=== PATIENT | male | born 1985 | race Caucasian/White ===

== ENCOUNTER 2020-10-02 01:11 | Emergency (ER) | payer MEDICAID ==
[~2020-10-02] VITALS: Ht 1722.1 cm; Wt 106.6 kg
[2020-10-02] MEDS ORDERED: CLOP75TA15 PO (01:34)
[2020-10-02] MEDS ORDERED: METO25TA6 PO (01:34)
[2020-10-02] MEDS ORDERED: ASPI81TA31 PO (01:34)
[2020-10-02] MEDS ORDERED: LISI-782 PO (01:34)
[2020-10-02] MEDS ORDERED: ATOR20TA PO (01:34)
[2020-10-02] MEDS ORDERED: AMLODIPINE 5 MG TABLET PO ONE (01:45)
--- NOTE | 2020-10-02 01:58 | NUR ---
md ordered to hold on the hydralizine at this time, 161/102
[2020-10-02] MEDS ORDERED: hydrALAZINE HCL 20 MG/1 ML VIAL ONE (02:02)
[2020-10-02 02:06] LABS: CREATININE 0.7 mg/dL (0.6-1.3); POTASSIUM 4.5 mmol/L (3.5-5.1)
[2020-10-02 02:11] LABS: BASOPHILS % (AUTO) 0.4 % (0.0-2.0); EOSINOPHILS # (AUTO) 0.1 K/uL (0.0-0.7); EOSINOPHILS % (AUTO) 1.1 % (0.0-7.0); HEMATOCRIT 44.1 % (36.7-47.1); HEMOGLOBIN 15.2 g/dL (12.5-16.3); LYMPHOCYTES # (AUTO) 2.9 K/uL (20.0-40.0); LYMPHOCYTES % (AUTO) 34.5 % (20.5-51.5); MEAN CORPUSCULAR HEMOGLOBIN 30.2 uug (23.8-33.4); MEAN CORPUSCULAR HGB CONC 35 g/dL (32.5-36.3); MEAN CORPUSCULAR VOLUME 87.6 fL (73.0-96.2); MONOCYTES # (AUTO) 0.6 K/uL (2.0-10.0); MONOCYTES % (AUTO) 7.2 % (0.0-11.0); NEUTROPHILS # (AUTO) 4.7 K/uL (1.8-8.9); NEUTROPHILS % (AUTO) 56.8 % (38.5-71.5); PLATELET COUNT (AUTO) 205 K/uL (152-348); RED BLOOD CELL COUNT(AUTO) 5.03 MIL/uL (4.06-5.63); WHITE BLOOD COUNT (AUTO) 8.3 K/uL (3.6-10.2)
[2020-10-02] MEDS: LISINOPRIL 10 MG TABLET PO ONE (02:15)
[2020-10-02] MEDS ORDERED: LISINOPRIL 10 MG TABLET ONE (02:16)
[2020-10-02] MEDS: hydrALAZINE HCL 20 MG/1 ML VIAL IV ONE (02:27)
[2020-10-02 02:53] LABS: CREATININE 0.7 mg/dL (0.6-1.3); POTASSIUM 3.8 mmol/L (3.5-5.1)
[2020-10-02] MEDS: METOPROLOL TARTRATE 50 MG TABLET PO ONE (04:05)
[2020-10-02] MEDS ORDERED: METOPROLOL TARTRATE 50 MG TABLET ONE (04:10)
--- NOTE | 2020-10-02 04:24 | NUR ---
Patient discharged to home in stable condition. Written and verbal after care instructions given. Patient verbalizes understanding of instructions. Stressed follow up or return to ER for worsening s/s.PT WALKS IN STEADY GAIT, PT DENIES HEADACHE,N/V OR DIZZINESS AT THIS TIME.
[2020-10-02 04:26] VITALS: BP 141/92
== END 2020-10-02 04:26 | disposition home or self-care (01) ==
LOC: ER 01:17
DX: R51.9 Headache, unspecified (principal); I10 Essential (primary) hypertension; Z79.82 Long term (current) use of aspirin; I25.2 Old myocardial infarction; E78.5 Hyperlipidemia, unspecified; Z95.5 Presence of coronary angioplasty implant and graft; F41.9 Anxiety disorder, unspecified; Z79.02 Long term (current) use of antithrombotics/antiplatelets; Z79.899 Other long term (current) drug therapy; Z82.49 Family history of ischemic heart disease and other diseases of the circulatory system
CPT/HCPCS: 36415; 70030-TC; 70450; 71045; 85025; 93005; A4663; J0360